=== PATIENT | female | born 1985 | race Caucasian/White ===

== ENCOUNTER 2017-05-02 17:12 | Emergency (ER) | payer OTHER ==
[~2017-05-02] VITALS: Ht 162.6 cm; Wt 75.1 kg
[2017-05-02 18:24] LABS: HEMATOCRIT 38.6 % (36.0-46.0); MCH 29.8 PG (29.0-34.0); MCHC 34.5 G/DL (30.0-36.0); MCV 86.4 FL (83-99); PLATELET COUNT 392 K/uL (156-360); RBC DIS.WIDTH-CV 12.8 % (11.8-14.6); RBC DIS.WIDTH-SD 40.1 % (39-53); RED BLOOD COUNT 4.47 M/uL (3.80-5.20)
[2017-05-02 19:28] LABS: CHLORIDE 105 mEq/L (99-109); POTASSIUM 3.9 mEq/L (3.7-5.4); SODIUM 137 mEq/L (136-147)
[2017-05-02 19:30] LABS: GLUCOSE 156 mg/dL (70-99)
[2017-05-02 19:31] LABS: ANION GAP 12 MEQ/L (2-14)
[2017-05-02 19:33] LABS: QUANTITATIVE HCG 139735.7 MIU/ML
[2017-05-02 19:34] LABS: ADD MIUA? YES; BILIRUBIN NEGATIVE; BLOOD SMALL; COLOR YELLOW ((YELLOW)); GLUCOSE (STRIP) NEGATIVE; KETONES NEGATIVE; LEUKOCYTES NEGATIVE; NITRITE NEGATIVE; PROTEIN (STRIP) NEGATIVE; SPECIFIC GRAVITY 1.006 (1.000-1.030); UROBILINOGEN 0.2 MG/DL (0.2-1.0)
[2017-05-02 19:34] LABS: GFR ESTIMATE (CALCULATED) > 59 mL/min/
[2017-05-02 19:35] LABS: UREA NITROGEN (BUN) 7 mg/dL (9-23)
[2017-05-02 19:49] LABS: BACTERIA RARE /HPF; EPITHELIAL CELLS RARE /HPF; MUCUS TRACE /LPF; RED BLOOD CELLS 0-5 /HPF (0-5); UCUL ADDED? NO; WHITE BLOOD CELLS 0-5 /HPF (0-5)
[2017-05-02 21:48] VITALS: BP 118/78
== END 2017-05-02 21:49 | disposition home or self-care (01) ==
LOC: EME 17:12
DX: O20.0 Threatened abortion (principal); Z3A.11 11 weeks gestation of pregnancy; O24.911 Unspecified diabetes mellitus in pregnancy, first trimester; Z96.41 Presence of insulin pump (external) (internal); Z88.2 Allergy status to sulfonamides; Z88.1 Allergy status to other antibiotic agents; Z88.0 Allergy status to penicillin
CPT/HCPCS: 76801; 80048; 81003; 84702; 85027; 99281; 99283